=== PATIENT | male | born 1990 | race Caucasian/White ===

== ENCOUNTER 2020-04-11 11:36 | Observation (INO) | payer BC ==
[2020-04-11 12:37] LABS: #Lymphocytes 0.8 thou/uL (1.20-3.40); #Monocytes 0.3 thou/uL (0.11-0.59); #Neutrophils 2.9 thou/uL (1.40-6.50); %Basophils 0.2 % (0.0-1.0); %Eosinophils 0.9 % (0.0-10.0); %Lymphocytes 19.1 % (21.0-51.0); %Monocytes 8.2 % (0.0-10.0); %Neutrophils 71.6 % (42.0-75.0); Hemoglobin 14.6 g/dL (14.0-18.0); Mean Corpuscular HGB CONC 34.8 g/dL (32.0-36.0); Mean Corpuscular Hemoglobin 30.6 pg (27.0-31.0); Mean Corpuscular Volume 88.2 fL (78.0-98.0); Mean Platelet Volume 8.1 fL (7.4-10.4); Platelet Count 180 thou/uL (130-400); RBC Distribution Width 11.8 % (11.5-14.5); Red Blood Cell (RBC) Count 4.78 mill/uL (4.70-6.10)
--- NOTE | 2020-04-11 12:42 | CT ---
EXAM: CT brain without contrast HISTORY: Syncope and fall COMPARISON: None TECHNIQUE: Multiple contiguous axial images were obtained and a CT of the brain without contrast. FINDINGS: The brain is normal in morphology and attenuation without focal lesions or confluent areas of infarction. There is no evidence of hydrocephalus, intracranial hemorrhage, or extra-axial fluid collection. The calvarium and overlying soft tissues are unremarkable. The visualized paranasal sinuses and masto id air cells are well aerated. IMPRESSION: No evidence of acute intracranial abnormality
[2020-04-11 13:02] LABS: ALT (SGPT) 15 U/L (8-55); AST (SGOT) 22 U/L (5-34); Albumin 4.3 g/dL (3.5-5.0); Alkaline Phosphatase 55 U/L (40-110); Anion Gap 12 mmol/L (10-20); BUN (Urea Nitrogen) 13 mg/dL (8.9-20.6); Bilirubin, Total 0.6 mg/dL (0.2-1.2); Calc. Creatinine Clearance 0 mL/min (70-130); Calcium 9.5 mg/dL (7.8-10.44); Carbon Dioxide 27 mmol/L (22-29); Chloride 102 mmol/L (98-107); Estimated GFR-MDRD Greater than 90; Globulin 2.4 g/dL (2.4-3.5); Glucose 107 mg/dL (70-105); Potassium 3.6 mmol/L (3.5-5.1); Protein, Total 6.7 g/dL (6.0-8.3); Sodium 137 mmol/L (136-145)
[2020-04-11 13:16] LABS: Bilirubin Negative (Negative); Blood, Urine Negative (Negative); Clarity Clear (Clear); Glucose, Urine (Dipstick) Normal (Negative); Leukocyte Negative Leu/uL (Negative); Nitrite Negative (Negative); Protein, Urine (Dipstick) 20 mg/dL (Neg-Trace); Urobilinogen Normal mg/dL (Less than 2)
[2020-04-11 14:22] LABS: Acetaminophen Less than 6.0 mcg/mL (10.0-30.0); Alcohol Less than 10 mg/dL (Less than 10); Salicylate Less than 8.0 mg/dL (15.0-30.0)
[2020-04-11 14:27] LABS: Amphetamine Not Detected (NotDetected); Barbiturates Screen Not Detected (NotDetected); Benzodiazepine Screen Not Detected (NotDetected); Cocaine Metabolite Screen Not Detected (NotDetected); Medtox Control Line Valid? VALID (VALID); Medtox Reader # READER 4; Methadone Not Detected (NotDetected); Methamphetamine Not Detected (NotDetected); Opiate Screen Not Detected (NotDetected); Oxycodone Screen Not Detected (NotDetected); Phencyclidine (PCP) Not Detected (NotDetected); THC/Cannabinoid Screen Not Detected (NotDetected); Tricyclic Screen Not Detected (NotDetected)
[2020-04-11] MEDS ORDERED: Nitroglycerin 0.4 MG TAB (25 Tab Bottle) PO PRN (18:17)
[2020-04-11] MEDS ORDERED: Ondansetron ODT 4 MG TAB PO PRN (18:18)
[2020-04-11] MEDS ORDERED: Ondansetron PF 4 MG/2 ML Vial IVP PRN (18:18)
[2020-04-11] MEDS ORDERED: Acetaminophen 325 MG TAB PO PRN (18:18)
[2020-04-11] MEDS ORDERED: Calcium Carbonate 500 MG ChewTAB PO PRN (18:18)
[2020-04-11] MEDS ORDERED: Lorazepam 2 MG/ML VIAL SLOW IVP PRN (18:20)
--- NOTE | 2020-04-11 18:53 | HP ---
PRIMARY CARE PHYSICIAN: Dr. Henning at [facility]. CHIEF COMPLAINT: Seizure-like activity. HISTORY OF PRESENT ILLNESS: The patient is a 29-year-old male with history of vasovagal syncope, presented to the emergency room by EMS with above complaints. The patient had a syncope/seizure while he was at work today. He went forward and then backward and fell. He was unresponsive. He is unable to recall the above event. He thinks he bit his tongue on the left. He has left knee and left facial abrasion. He denies any headache, double vision, blurring of vision, facial asymmetry. He was found to have a heart rate in 30s in the emergency room at some point. PAST MEDICAL HISTORY: 1. Asperger syndrome. 2. GERD. 3. History of vasovagal syncope. At age of 15, he had a 24-hour EEG at [facility], which was negative. PAST SURGICAL HISTORY: Reviewed with the patient, hernia repair. ALLERGIES: NO KNOWN DRUG ALLERGIES. CURRENT HOME MEDICATION: Reviewed with the patient and none. SOCIAL HISTORY: The patient currently lives at home with his family. No smoking, alcohol or drug use. The mom is at the bedside. FAMILY HISTORY: Negative for heart disease. REVIEW OF SYSTEMS: All other review of systems were reviewed and were found negative. PHYSICAL EXAMINATION: VITAL SIGNS: Temperature, the patient is afebrile with respirations of 18, pulse rate of 75, blood pressure of 141/76, and O2 sat of 94% on room air. GENERAL: This is a 29-year-old male, in no apparent distress. HEENT: Head, atraumatic and normocephalic. Sclerae anicteric. Moist mucous membranes. No oral lesion. NECK: Supple. No JVD appreciated. No carotid bruit. LUNGS: Clear to auscultation bilaterally. No wheezing, rales or rhonchi. HEART: S1 and S2 present. Regular rate and rhythm. No rubs or gallops. ABDOMEN: Soft and nontender. Bowel sounds present. EXTREMITIES: No edema or calf tenderness. NEUROLOGIC: Grossly nonfocal, moves all 4 extremities. Power was 5/5 in all extremities. PSYCHIATRIC: Alert, awake, and oriented x3. SKIN: Warm and dry. There is abrasion over the left cheek and left knee. MUSCULOSKELETAL: No joint swelling or tenderness. DIAGNOSTIC DATA: EKG by my review showed sinus rhythm without significant ST-T wave changes. CT scan of the brain by my review was negative. LABORATORY DATA: Prolactin was 57.1. Troponin negative. TSH 1.2. WBC 4.0 with hemoglobin 14.6 and lymphocytes 19.1. IMPRESSION: 1. Syncope versus seizure. 2. History of vasovagal syncope with 24-hour EEG at [facility] at age of 15. 3. Gastroesophageal reflux disease. 4. Bradycardia with heart rate of 30 one time in the emergency room. PLAN: The patient will be monitored in the telemetry unit as observation. His troponin was negative. We will place him on seizure precautions. Consult Neurology and Cardiology. His TSH is normal. We will start him on IV hydration. Echocardiogram will be obtained. We will keep the patient n.p.o. after midnight. The patient understands the above plan of care. Job ID: [id number]
[2020-04-11] MEDS: D5 1/2 NS w/20 mEq KCL 1,000 ML IV SCH (22:18)
[2020-04-11 23:21] VITALS: BMI 21.4
[2020-04-12] MEDS: D5 1/2 NS w/20 mEq KCL 1,000 ML IV SCH ×3 (04:52→14:19)
--- NOTE | 2020-04-12 12:19 | CON ---
NEUROLOGY CONSULTATION DATE OF CONSULTATION: 04/12/2020 REASON FOR CONSULTATION: Seizure-like activity. HISTORY OF PRESENT ILLNESS: Mr. Martinez is a 29-year-old male with history significant for vasovagal syncope, presented with an episode of seizure-like activity. The history is obtained from the patient and also from the mother who came with detailed notes. According to her, at age 3-1/2 years, he ran into a metal fence and scan showed possible hairline fracture. Few weeks later, he was diagnosed with posttraumatic stuttering and started on a speech therapy program. At age 10, he was diagnosed with Asperger syndrome and was followed by Dr. Feliz at [facility] in [place], and at age 15, he fell over backwards, hit his head and had seizure-like activity characterized by shaking, but EEG did not show any seizures. 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 Apparently, yesterday also he had an event, he became unresponsive and fell backwards. The patient has no recollection of the incident, but he states he does have a queasy feeling in the stomach, which he had before and as if there are butterflies in his stomach before he passed out. He did not have major tongue bite or urinary incontinence but has left facial and knee abrasion. The patient denies nausea, vomiting, headache, chest pain, focal weakness, or focal paresthesias. When he arrived to the emergency room, his heart rates were in the 30s. He does have a strong family history of seizure, the mother has epilepsy and is followed by Dr. Olvera and also has history of head injury. REVIEW OF SYSTEMS: All 14 systems were reviewed and were negative except the pertinent positives and negatives mentioned in the HPI. PAST MEDICAL HISTORY: Asperger syndrome, GERD, vasovagal syncope, questionable seizure disorder. PAST SURGICAL HISTORY: Hernia repair. ALLERGIES: NO KNOWN DRUG ALLERGIES. MEDICATIONS: Home medications, none. SOCIAL HISTORY: The patient lives at home with his family. Denies smoking, alcohol, illegal drug use. FAMILY HISTORY: Negative for heart disease. Positive for epilepsy in mother. PHYSICAL EXAMINATION: VITAL SIGNS: Blood pressure 140/70, pulse 80, respiratory rate 18. GENERAL: Alert, awake male, in no acute distress. CVS: Regular rate and rhythm. CHEST: Clear. ABDOMEN: Soft. NECK: No carotid bruit. NEUROLOGICAL EXAMINATION: Mental status, the patient is alert and oriented to person, place, and time. Recent and remote memory intact. Speech is clear. Fund of knowledge is appropriate. Cranial nerves 2 through 12 intact. Sensory intact. Motor, muscle tone and bulk are normal. Strength 5/5 bilaterally. Cerebellar, finger-nose testing intact. Gait deferred due to patient's safety reasons. LABORATORY DATA: I reviewed the CT scan, which did not reveal any acute intracranial pathology. I also reviewed the EKG, which was negative. ASSESSMENT AND PLAN: Mr. Martinez is a 29-year-old male with history significant for episodes suspicious for seizures, but syncope cannot be ruled out.. Recommend EEG to rule out seizure activity. Recommend MRI of the brain with seizure protocol, which can be done as outpatient. The patient should follow up with the neurologist as outpatient for further workup and see if he is a candidate for a seizure medication. Neuro checks every 4 hours. Consider Cardiology input and 2D echo and telemetry Continue medical management per primary team. We will continue to follow. Thank you for the consult. Job ID: [id number] MTDD
--- NOTE | 2020-04-12 14:40 | EEG ---
DATE OF SERVICE: 04/12/2020 This EEG was performed using 24-channel grip[employer]etek video digital EEG machine with 24-disk electrode. This was an extended 2 hour 5 minutes of inpatient video EEG recording. Digital analysis of the EEG was done for spike and seizure detection, which revealed no abnormalities. BACKGROUND: The posterior background rhythm is 9 to 10 hertz. The background rhythm attenuates with eye opening and enhances with eye closure. HYPERVENTILATION: No significant response seen with hyperventilation. PHOTIC STIMULATION: Bi-occipital symmetric driving responses observed. SLEEP: Drowsiness is observed. EEG DIAGNOSIS: Normal awake, drowsy, and sleep EEG. Job ID: [id number]
--- NOTE | 2020-04-12 17:16 | PDOC.HOSPP ---
- Subjective Encounter Date: 04/12/20 Encounter Time: 12:00 Subjective: Patient seen and examined for syncope. No new seizure/syncope. No new complaints. No overnight events - Objective Vital Signs & Weight: Vital Signs (12 hours) Temp Pulse Resp BP Pulse Ox 04/12/20 15:11 97.6 F 50 L 14 143/77 H 100 04/12/20 12:27 97.8 F 51 L 14 125/70 100 04/12/20 08:05 97.3 F L 53 L 16 128/72 100 Weight Weight 169 lb 12.095 oz I&O: 04/11/20 04/12/20 04/13/20 06:59 06:59 06:59 Intake Total 1500 Balance 1500 Result Diagrams: 04/11/20 12:28 04/11/20 12:28 EKG Reviewed by me: Yes (Tele SB) Hospitalist ROS - Review of Systems Respiratory: denies: cough, dry, shortness of breath, hemoptysis, SOB with excertion, pleuritic pain, sputum, wheezing, other Cardiovascular: denies: chest pain, palpitations, orthopnea, paroxysmal noc. dyspnea, edema, light headedness, other Gastrointestinal: denies: nausea, vomiting, abdominal pain, diarrhea, constipation, melena, hematochezia, other - Medication Medications: Active Medications Generic Name Dose Route Start Last Admin Trade Name Freq PRN Reason Stop Dose Admin Acetaminophen 650 mg 04/11/20 18:18 04/12/20 08:13 Tylenol PO 650 mg Q4H PRN Administration Headache/Fever/Mild Pain (1-3) - Exam General Appearance: NAD Heart: RRR, no gallops Respiratory: no wheezes, no ronchi Gastrointestinal: non-tender, non-distended, normal bowel sounds Extremities: no cyanosis, no clubbing Neurological: no new deficit Hosp A/P - Plan DVT proph w/SCDs 1. Syncope versus seizure. 2. History of vasovagal syncope with 24-hour EEG at [facility] at age of 15. 3. GERD. 4. Sinus bradycardia. PLAN: Await Neuro/Cardio input Await Echo MRI brain per Neuro Orthostatic negative DC IVF
--- NOTE | 2020-04-12 18:49 | CON ---
DATE OF CONSULTATION: 04/12/2020 REASON FOR CONSULTATION: Syncope. HISTORY OF PRESENT ILLNESS: Mr. Martinez is a very pleasant 29-year-old white gentleman, who comes to the hospital for a syncopal spell. He works at the [employer] here in [facility], and he was at work and had a syncopal spell. He tells me in very good detail exactly what happened. 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 He states he felt very stressed about this. He felt terribly bad and suddenly started feeling butterflies in his stomach and then eventually passed out. EMS was called, and he was brought in for further evaluation and care. He has had similar symptoms in the past and has been diagnosed with vasovagal syncope. He states the last time he was 16 years old, he remembers he was in a very similar situation, where he was very stressed. He has been told that every time he feels those butterflies, he needs to sit down to avoid syncopal spells, and he felt those same butterflies, but he tells me that he had so much stuff in his brain at the moment as he felt that he had done wrong at work, that he did not pay attention to it, but remembers feeling it and eventually passing out like he has had in the past. No report on seizure-like activity per his mom and per him, but this was witnessed by some people, whom I have not had access to. PAST MEDICAL HISTORY: 1. Asperger syndrome. 2. GERD. 3. History of vasovagal syncope in the past. PAST SURGICAL HISTORY: Hailey fundoplication and hernia repair. ALLERGIES: NO KNOWN DRUG ALLERGIES. HOME MEDICATIONS: None. SOCIAL HISTORY: No alcohol, tobacco, or drugs. Mother at bedside. Lives at home with his family. FAMILY HISTORY: Negative for early coronary artery disease. His mother does have a history of seizure, just a form of grand mal seizures. REVIEW OF SYSTEMS: A 12-point review of systems was done and was all negative unless stated in the history of present illness. PHYSICAL EXAMINATION: VITAL SIGNS: Temperature 97.6, pulse 50, respiratory rate 14, saturating 100% on room air, blood pressure 143/77. GENERAL: Awake, alert, and oriented x3, in no distress. HEENT: Normocephalic and atraumatic. Small laceration on his left lower eyelid. NECK: Supple. LUNGS: Clear. CARDIOVASCULAR: S1 and S2. No S3 or S4. No murmurs. No rubs. ABDOMEN: Soft. Positive bowel sounds. EXTREMITIES: No edema. SKIN: Warm and dry. LABORATORY DATA: Laboratory work was reviewed. White count of 4, hemoglobin of 14, hematocrit of 42, platelet count of 180. Chemistries were unremarkable except for a glucose of 108. Troponin was negative x1. Prolactin was 57, a little bit high. TSH was 1.2. UA was unremarkable. Toxicology was unremarkable as well. Electroencephalogram was performed earlier today, which showed no evidence of seizure-like disorder. Normal awake, drowsy, and sleep EEG. CT of the brain was unremarkable. ASSESSMENT: 1. Syncope. 2. Possible seizure disorder. 3. Family history of seizure disorder. PLAN: 1. Likely, vasovagal syncope from the history. We would not add any further regimen. Echocardiogram was unremarkable, which has borderline mitral valve prolapse, but did not really meet criteria and only has trace mitral regurgitation, minimal. At this point in time, I think Mr. Martinez would be okay to be discharged home from the cardiac perspective. 2. Thank you for letting us to participate in the care of your patient. Please call with any questions. We will sign off. We will see the patient back in the office in 2 to 3 months. Job ID: [id number]
[2020-04-13 08:11] VITALS: TEMP 98.1
--- NOTE | 2020-04-13 10:12 | PDOC.CPN ---
- Subjective Date: 04/13/20 Time: 10:09 Interval history: he is doing well. No new issues. - Review of Systems General: denies: fever/chills, weight/appetite/sleep changes, night sweats, fatigue Respiratory: denies: cough, congestion, shortness of breath, exercise intolerance Cardiovascular: denies: chest pain, palpitation, edema, paroxysmal nocturnal dyspnea, orthopnea Gastrointestinal: denies: nausea, vomiting, diarrhea, constipation, abd pain, GI bleeding Musculoskeletal: denies: pain, tenderness, stiffness, swelling, arthritis/ arthralgias Neurological: denies: numbness, syncope, seizure, weakness - Objective Allergies/Adverse Reactions: Allergies Allergy/AdvReac Type Severity Reaction Status Date / Time No Known Allergies Allergy Verified 04/11/20 16:20 Visit Medications: Current Medications Acetaminophen (Tylenol) 650 mg PO Q4H PRN PRN Reason: Headache/Fever/Mild Pain (1-3) Last Admin: 04/12/20 08:13 Dose: 650 mg Calcium Carbonate (Tums) 1,000 mg PO Q4H PRN PRN Reason: Heartburn or Indigestion Lorazepam (Ativan) 1 mg SLOW IVP Q15MIN PRN PRN Reason: Seizures Nitroglycerin (Nitrostat) 0.4 mg PO Q5MIN PRN PRN Reason: Chest Pain Ondansetron HCl (Zofran Odt) 4 mg PO Q6H PRN PRN Reason: Nausea/Vomiting Ondansetron HCl (Zofran) 4 mg IVP Q6H PRN PRN Reason: Nausea/Vomiting Sodium Chloride (Flush - Normal Saline) 10 ml IVF PRN PRN PRN Reason: Saline Flush Vital Signs & Weight: Vital Signs Temp Pulse Resp BP Pulse Ox 04/13/20 08:00 98.1 F 51 L 18 122/63 99 04/13/20 03:56 97.4 F L 91 18 134/64 99 Weight 170 lb 3.15 oz - Physical Exam General: alert & oriented x3 HEENT: mucus membranes moist Neck: supple neck Cardiac: regular rate and rhythm Lungs: clear to auscultation Neuro: grossly intact Abdomen: active bowel sounds Extremities: no edema Skin: clear Musculoskeletal: no pain - Labs Result Diagrams: 04/11/20 12:28 04/11/20 12:28 Troponin/CKMB Troponin I Less than 0.010 ng/mL (< 0.028) 04/11/20 13:59 - Telemetry Sinus rhythms and dysrhythmias: sinus rhythm - Assessment/Plan Assessment/Plan: 1. Sycnope, likely vasovagal 2. Family history of seizures 3. Aspergers PLAN: - CV stable. - From cardiac perspective may discharge at any time. Would recommend finishing neuro work up prior to D/C. - Recommend to stay well hydrated and high salt diet - His bradycardia at night is normal and he has good chronotropic competence as his HR comes up to the 70's once he wakes up. - Follow up ion the office in 2 months.
[2020-04-13 11:56] VITALS: BP 124/69
--- NOTE | 2020-04-13 12:25 | PDOC.HOSPP ---
- Subjective Encounter Date: 04/13/20 Subjective: NEUROLOGY PROGRESS NOTE No acute issues overnight. Awaiting MRI brain. Mother at bedside. - Objective Vital Signs & Weight: Vital Signs (12 hours) Temp Pulse Resp BP Pulse Ox 04/13/20 11:38 98.1 F 58 L 20 124/69 100 04/13/20 08:00 98.1 F 51 L 18 122/63 99 04/13/20 03:56 97.4 F L 91 18 134/64 99 Weight Weight 170 lb 3.15 oz I&O: 04/12/20 04/13/20 04/14/20 06:59 06:59 06:59 Intake Total 1500 980 Balance 1500 980 Result Diagrams: 04/11/20 12:28 04/11/20 12:28 Radiology Reviewed by me: Yes EKG Reviewed by me: Yes Hospitalist ROS - Review of Systems Constitutional: denies: fever, chills, sweats, weakness, malaise, other Eyes: denies: pain, vision change, conjunctivae inflammation, eyelid inflammation, redness, other ENT: denies: ear pain, ear discharge, nose pain, nose discharge, nose congestion , mouth pain, mouth swelling, throat pain, throat swelling, other Respiratory: denies: cough, dry, shortness of breath, hemoptysis, SOB with excertion, pleuritic pain, sputum, wheezing, other Cardiovascular: denies: chest pain, palpitations, orthopnea, paroxysmal noc. dyspnea, edema, light headedness, other Gastrointestinal: denies: nausea, vomiting, abdominal pain, diarrhea, constipation, melena, hematochezia, other Genitourinary: denies: dysuria, frequency, incontinence, hematuria, retention, other Musculoskeletal: denies: neck pain, shoulder pain, arm pain, back pain, hand pain, leg pain, foot pain, other Skin: denies: rash, lesions, agata, bruising, other Neurological: denies: weakness, numbness, incoordination, change in speech, confusion, seizures, other - Medication Medications: Active Medications Generic Name Dose Route Start Last Admin Trade Name Freq PRN Reason Stop Dose Admin Acetaminophen 650 mg 04/11/20 18:18 04/12/20 08:13 Tylenol PO 650 mg Q4H PRN Administration Headache/Fever/Mild Pain (1-3) - Exam General Appearance: awake alert Eye: PERRL, anicteric sclera ENT: normocephalic atraumatic, no oropharyngeal lesions, moist mucosa Neck: supple Heart: RRR Respiratory: CTAB Gastrointestinal: soft Extremities: no cyanosis Skin: normal turgor Neurological: cranial nerve grossly intact, normal sensation to touch, no weakness, no focal deficits, no new deficit Musculoskeletal: normal tone, normal strength, no muscle wasting Psychiatric: normal affect, normal behavior, A&O x 3, oriented to person, oriented to place, oriented to time Hosp A/P (1) Vasovagal syncope Code(s): R55 - SYNCOPE AND COLLAPSE Status: Acute (2) Seizure-like activity Code(s): R56.9 - UNSPECIFIED CONVULSIONS Status: Acute - Plan plan discussed w/ family 29 year old male with episodes most likely vasobvagal but seizure could not be completely ruled out because of maternal history of seizure disorder and an aura of abnormal feeling in the stomach prior to the events. EEG reviewed which was negative for seizure activity. Awaiting MRI brain. Patient cleared by cardiology. Follow up with neurologist as outpatient to see if he needs a trial of medication. Patient stable from neurology perspective. Continue medical management per primary team.
--- NOTE | 2020-04-13 13:35 | MRI ---
Exam: Brain MRI with and without contrast HISTORY: Seizure COMPARISON: None FINDINGS: Gradient echo sequence: No hemorrhage. Symmetric signal intensity of the hippocampi Calvarium: Appropriate T1 marrow signal intensity Midline brain parenchyma: Unremarkable Cerebrum:No parenchymal mass, mass effect or midline shift. Brain volume is age-appropriate. Cortical escamilla-white matter differentiation is preserved. No significant T2 or FLAIR white matter hyperintensities. Symmetric signal intensity of the hippocampi. No MR evidence of mesial temporal scl erosis Ventricles: No evidence of hydrocephalus. Sinuses and mastoid air cells: Adequate aeration Diffusion: Central arterial flow is maintained. Absent restricted diffusion. Postcontrast images: No pathologic enhancement of the brain parenchyma. IMPRESSION: 1. Absent restricted diffusion. No acute infarct 2. No pathologic enhancement of the brain parenchyma 3. No evidence of mesial temporal sclerosis
--- NOTE | 2020-04-14 02:03 | DIS ---
DATE OF ADMISSION: 04/11/2020 DATE OF DISCHARGE: 04/13/2020 DISCHARGE DISPOSITION: Home. FOLLOWUP: 1. Follow up with primary care physician, Dr. Henning at [facility] in 1 week. 2. Follow up with Neurology, Dr. Olvera in 1 to 2 weeks. 3. Follow up with Cardiology, Dr. Ahn as scheduled. ALLERGIES: NO KNOWN DRUG ALLERGIES. NO DRIVING UNTIL CLEARED BY MD. BRIEF HOSPITAL COURSE: The patient is a 29-year-old male, who presented to the emergency room after an episode of syncope with seizure-like activity. He was at work at that time. Please refer to the history and physical for further details. The patient was admitted to the hospital with a diagnosis of syncope versus seizure. He was monitored on telemetry. On manager monitoring, he was found to have episodic bradycardia with heart rate in 30s, especially during sleep. He was evaluated by Cardiology and Neurology. An EEG was negative for any seizure-like activity. Echocardiogram showed normal left ventricular ejection fraction of 55% to 60% with borderline bileaflet mitral valve prolapse, trace mitral regurgitation, mild tricuspid regurgitation. MRI of the brain was negative for acute findings. On the day of discharge, he denies any new complaints. His vital signs showed temperature 98.1, pulse of 58, respirations 20, blood pressure of 124/69 with O2 saturation 100% on room air. He has been cleared by consultants for discharge. FINAL DIAGNOSES: 1. Vasovagal syncope. 2. Gastroesophageal reflux disease. 3. Sinus bradycardia with good chronotropic competence as his heart rate comes up to 70s once he wakes up. 4. History of Asperger syndrome. 5. Significant labs; prolactin of 57.1, TSH of 1.2. Troponin negative. Magnesium normal. 6. The patient understands the above plan of care. Job ID: [id number]
--- NOTE | 2020-04-14 15:31 | EKG ---
Test Reason : Blood Pressure : / mmHG Vent. Rate : 061 BPM Atrial Rate : 061 BPM P-R Int : 146 ms QRS Dur : 104 ms QT Int : 412 ms P-R-T Axes : 064 046 027 degrees QTc Int : 414 ms Normal sinus rhythm Possible Left atrial enlargement Borderline ECG Confirmed by GENNA MACE, CRISTINA ([id number]), editor map YUMIKO HUANG ([id number]) on 04/14/2020 3:30:52 PM Referred By: Confirmed By:CRISTINA VAIL MD
== END 2020-04-13 16:30 | disposition home or self-care (01) ==
LOC: ERS 11:36 → ERHOLD 14:06 → 2NO 20:48
PROVIDERS: ADMIT Internal Medicine; ATTEND Internal Medicine
DX: R55 Syncope and collapse (principal); R56.9 Unspecified convulsions; K21.9 Gastro-esophageal reflux disease without esophagitis; R00.1 Bradycardia, unspecified; F84.5 Asperger's syndrome
CPT/HCPCS: 36415; 70450; 70553; 80053; 80306; 80307; 81003; 83735; 84146; 84443; 84484; 85025; 93005; 93306; 94760; 95712; 95819; 95957; 96360; 96361; G0378; J3480